=== PATIENT | male | born 1995 | race Caucasian/White ===

== ENCOUNTER 2023-12-09 10:55 | Emergency (ER) | payer BC, SELFPAY ==
[2023-12-09 10:57] VITALS: BP 151/103; PULSE 86; RESP 16; TEMP 35.8; O2SAT 97; BMI 30.9
--- NOTE | 2023-12-09 11:22 | ED.RN ---
Called crisis per Dr Harper no sitter needed at this time.
--- NOTE | 2023-12-09 12:26 | ED.RN ---
Patients chart faxed to crisis.
--- NOTE | 2023-12-09 12:30 | ED.RN ---
PT FAMILY UPDATED ON GETTING BLOOD WORK BACK, AND WHAT TO EXPECT. TOLD PT. THAT ONCE WE SENT LABS AND STUFF TO [facility], AND WE ARE AT THE DIGRESSION OF THE [facility].
--- NOTE | 2023-12-09 13:39 | EDS_ITS ---
HPI HPI - Psych History of Present Illness Chief Complaint: Suicidal Detail of Chief Complaint: Depression Informant: patient Onset/Context/Timing Onset: Days Context: Gradual Onset Timing: Continuous Current Severity: Mild Maximum Severity: Mild Associated Symptoms Associated Symptoms - Psych: Positive for Depressed Narrative Narrative: 28-year-old male history of anxiety and depression. Said he has concern that he might hurt somebody. He is having homicidal thoughts. He previously was on Wellbutrin and Lexapro for his pression he took himself off of those a month ago. He is currently on Pristiq. He denies being suicidal. He has never been hospitalized for mental illness or attempted suicide. Prior similar symptoms: Yes Recent Illness/Hospitalization: No PFSH PFSH Allergy/AdvReac Type Severity Reaction Status Date / Time No Known Allergies Allergy Verified 12/09/23 10:57 Social History Smoking Status: Never smoker ROS ROS ED ROS Narrative Denies recent illness. Constitutional Constitutional ED: Denies chills or fever(s) Eyes Eyes: Denies blurry vision ENT ENT ED: Denies ear pain Cardiovascular Cardiovascular: Denies chest pain Respiratory/Chest Respiratory/Chest: Denies cough or dyspnea Gastrointestinal Gastrointestinal: Denies abdominal pain Genitourinary Genitourinary ED: Denies dysuria or hematuria Musculoskeletal Musculoskeletal: Denies arthralgias Integumentary Denies abscess or Abrasions Psychiatric Psychiatric: Reports anxiety and depression Endocrine Endocrinology: Denies polydipsia, polyphagia or polyuria Hematologic/Lymphatic Hematologic/Lymphatic: Denies easy bleeding Allergic/Immunologic Allergic/Immunologic ED: Denies mouth swelling or tongue swelling EXAM Physical Exam Narrative Exam Narrative: Well-appearing 28-year-old male. Vital signs stable afebrile. Anxious. H EENT exam unremarkable. Neck nontender. No signs of trauma. Lungs clear to auscultation. Heart regular rhythm. Abdomen soft nontender. Moving all 4 extremities. No track gonzalez. No signs of lacerations or old cutting scars. 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 Normal dorsi plantarflexion. No edema. Neurologically is awake and alert no focal motor deficits. No toxidrome or smell of alcohol. Const Vital Signs: 12/09/23 10:57 Temperature 96.5 F L Temperature Source Temporal Pulse Rate 86 Respiratory Rate 16 Blood Pressure 151/103 H Blood Pressure Mean 119 Pulse Ox 97 Oxygen Delivery Method Room Air Positive well nourished and well developed; Negative for obese, cachectic, contractures or unkempt General Appearance ED: well developed and NAD; Negative for unkempt, cachectic or contractures Nutritional Appearance: Negative for cachectic or obese HEENT Reports moist mucous membranes normocephalic and atraumatic Eyes PERRL and EOMs intact bilaterally General Eye ED: Negative for pale conjunctiva or scleral icterus Neck no lymphadenopathy, supple and no JVD General: Negative for tenderness Resp normal respiratory effort and clear to auscultation bilaterally Effort and Inspection: Negative for retractions Auscultation: Negative for rales, rhonchi, wheezes or diminished lung sounds Cardio S1 normal heart sound, S2 normal heart sound and no murmurs Rate: regular rate Rhythm: regular rhythm GI non-tender, non-distended and no masses Inspection: Negative for abdominal distention Palpation: soft; Negative for tender Back/Spine no CVA tenderness Extremity normal to inspection General Extremety ED: Negative for edema or tenderness General Extremity: Negative for edema Neuro oriented x3 and CN's II-XII intact bilaterally Sensorium / Orientation: alert, oriented to person, oriented to place and oriented to time; Negative for orientation impaired, confused, lethargic or stuporous Motor Exam: strength 5/5 throughout Psych mental status grossly normal, thought process normal, cooperative, affect normal, speech normal, activity/motor behavior normal, denies hallucinations and denies suicidal ideation; Negative for denies homicidal ideation Appearance: grossly normal, appropriate and well kempt; Negative for unkempt, disheveled, bizarre or intubated Attitude: calm, engaged, No paranoid, No withdrawn, No bizarre, No uncooperat raman, No evasive, No guarded, No belligerent, No agitated and No aggressive Activity / Motor Behavior: appropriate eye contact Speech: normal speech Mood & Affect: depressed Thought Process: normal thought process Thought Content: normal thought content Attention / Concentration: attention grossly intact Memory / Cognition: memory grossly intact Insight: insight good Judgement: judgement good Skin General Skin Exam: Negative for jaundice Lesions: no lesions Rashes: no rashes Trauma: Negative for abrasion Wounds: Negative for amputation MDM MDM MDM Narrative Medical decision making narrative: 36-year-old male history of anxiety and depression. Having homicidal thoughts. Medically cleared. Alcohol level negative. Awaiting crisis evaluation Patient doing well at 356. He will be given a milligram of of Ativan orally. We are just still awaiting crisis evaluation. Lab Data Attestation: I reviewed the patient's lab results. Lab results narrative: Alcohol is normal at 3. Labs: Laboratory Results - last 24 hr 12/09/23 11:42 Ethyl Alcohol 3.0 Discharge Plan Triage Chief Complaint: Suicidal ED Provider: Radu Harper Dx/Rx/DC Orders Clinical Impression: Anxiety, Depression, Homicidal thoughts Primary Care Provider: JAGUAR SALAZAR Referrals: JAGUAR SALAZAR [Other] Print Language: Welsh
--- NOTE | 2023-12-09 14:15 | ED.RN ---
Mother of patient came out to check on status. She is very upset that the process is taking so long. It was explained to the mother that the whole process is long. She stated that this is the first time she has had to deal with this and they are from [place]. I explained that the same crisis counselor that comes here would the same counselor that would see him at [place]. Mother said thank you and went back into the room.
--- NOTE | 2023-12-09 16:13 | ED.RN ---
Mom has come out several times. Mom is very upset and stated that they could have taken him to [facility] to get him care. Mom asked for something for his nerves. An order for Ativan was given by Dr Harper. Mom still upset. She was told that the counselor was out in the community and there was no ETA for them to be here.
[2023-12-09] MEDS: LORazepam 1 MG Tablet PO (16:17)
--- NOTE | 2023-12-09 16:57 | ED.RN ---
crisis is here to see pt.
[2023-12-09 18:45] VITALS: BP 133/89; PULSE 88; RESP 18; TEMP 36.9; O2SAT 96
== END 2023-12-09 18:54 | disposition home or self-care (01) ==
PROVIDERS: Emergency Provider Emergency Medicine; Visit Provider Emergency Medicine
DX: F41.9 Anxiety disorder, unspecified (principal); F32.A Depression, unspecified; R45.850 Homicidal ideations
CPT/HCPCS: 36415; 82077; 99284